=== PATIENT | male | born 1995 | race Two or more races ===

== ENCOUNTER 2025-02-28 17:04 | Emergency (ER) | payer MEDICAID ==
[~2025-02-28] VITALS: Ht 162.6 cm; Wt 70.0 kg
[2025-02-28 17:11] VITALS: BP 119/79; PULSE 89; RESP 18; TEMP 98.7; O2SAT 98
[2025-02-28] MEDS ORDERED: MOXI3DRO25 OD (17:50)
== END 2025-02-28 18:14 | disposition home or self-care (01) ==
LOC: EMS 17:08
DX: T15.11XA Foreign body in conjunctival sac, right eye, initial encounter (principal); W44.8XXA Other foreign body entering into or through a natural orifice, initial encounter; Y93.89 Activity, other specified; Y92.89 Other specified places as the place of occurrence of the external cause; Y99.8 Other external cause status
CPT/HCPCS: 65205; 99284; Z7502